=== PATIENT | female | born 1970 | race Caucasian/White ===

== ENCOUNTER → 2019-08-14 10:54 | Outpatient (CLI) | payer BC, SELFPAY ==
[2019-08-14 13:00] LABS: Coronavirus 19 IgG Antibody Negative (Negative); Coronavirus 19 IgM Antibody Negative (Negative)
== END ==
PROVIDERS: PCP Family Medicine; Visit Provider Family Medicine
DX: Z03.818 Encounter for observation for suspected exposure to other biological agents ruled out (principal)
CPT/HCPCS: 36415; 86328

== ENCOUNTER → 2020-02-05 16:43 | Outpatient (CLI) | payer BC, SELFPAY ==
--- NOTE | 2020-02-05 16:45 | MM_ITS ---
PROCEDURE: MM DIG SCREENING MAMM BI W/CAD Referring Doctor: Karley Cooper Patient Age:49Y CLINICAL INDICATION: SCREENING ROUTINE SCREENING. 49-YEAR-OLD. . NO HORMONES, NO NEW COMPLAINTS FAMILY HISTORY PATERNAL GRANDMOTHER WITH BREAST CANCER COMPARISON: MG MM DIG MAMMO SC from 11/07/2012 MG MM DIG MAMMO SC from 12/17/2013 TECHNIQUE: Standard CC and MLO images were obtained. R2 CAD reviewed. Bilateral digital breast tomosynthesis included. FINDINGS: moderate density breast tissue bilaterally mainly distributed through the superior breast and into the central breast. no dominant or suspicious mass.. No suspicious calcifications. There are few scattered punctate calcifications in both breast the not concern a few tiny small benign-appearing punctate calcifications bilaterally but no suspicious grouped microcalcifications. Right breast. No new areas of significant concern hand I small area of questionable the nodularity medial breast dissipates on tomosynthesis view and appears to be a vessel on end as seen before Left breast-a similar architecture with no new areas of concern IMPRESSION: NO SUSPICIOUS FINDINGS. NO NEW AREAS OF SIGNIFICANT CONCERN Moderately dense breast BILATERAL FOLLOW-UP 1 YEAR recommended, and should be encouraged BI-RAD Category: 2 Benign Finding(s) FOLLOW-UP: 1YR 1 Year Follow-up (A letter has been sent to the patient regarding results of the study.) Dictated by: Jerome Hernández MD 02/18/2020 07:15 Jerome Hernández MD in [place] 02/18/2020 07:15
== END ==
PROVIDERS: PCP Nurse Practitioner Family; Visit Provider Nurse Practitioner Family
DX: Z12.31 Encounter for screening mammogram for malignant neoplasm of breast (principal)
CPT/HCPCS: 77063; 77067

== ENCOUNTER → 2020-03-13 13:50 | Outpatient (CLI) | payer BC, SELFPAY ==
--- NOTE | 2020-03-13 13:56 | US_ITS ---
PROCEDURE: US THYROID CLINICAL INDICATION: AUTOIMMUNE THYROIDITIS COMPARISON: No exams were available for comparison FINDINGS: Right lobe: 1.8cm x 4.3cm x 2.3cm Left lobe: 1.1cm x 3.0cm x 1.1cm Isthmus: Unremarkable Additional findings: There is diffuse heterogeneous appearance the thyroid gland on both sides having a somewhat swish cheese appearance consistent with thyroiditis. IMPRESSION: Heterogeneous appearance of the thyroid gland as described above suggesting thyroiditis Dictated by: Navneet Leon MD 03/14/2020 09:07 Navneet Leon MD in [facility] 03/14/2020 09:07
== END ==
PROVIDERS: PCP Nurse Practitioner Family; Visit Provider Nurse Practitioner Family
DX: E06.3 Autoimmune thyroiditis (principal)
CPT/HCPCS: 76536

== ENCOUNTER 2023-06-13 14:00 | Outpatient (CLI) | payer OTHER, SELFPAY ==
[2023-06-13 14:53] LABS: Cholesterol 237 mg/dl (140-200); Triglycerides 83 mg/dl (30-150); VLDL Cholesterol 17 mg/dL (0-40)
[2023-06-13 15:02] LABS: Chol/HDL Ratio 2.3 (1-3.5); HDL Cholesterol 104 mg/dl (40-60)
[2023-06-13 15:05] LABS: Direct LDL Cholesterol 105.81 mg/dL (100-129)
[2023-06-13 15:11] LABS: T4 (Thyroxine) 7.7 ug/dl (5.53-11.0)
[2023-06-13 15:28] LABS: Ferritin 4.96 ng/ml (6.24-137)
[2023-06-13 16:19] LABS: 25-OH Vitamin D, Total 40.3 ng/mL (30-100)
[2023-06-13 17:08] LABS: Vitamin B12 953 pg/mL (239-931)
[2023-06-14 08:33] LABS: Triiodothyronine (T3) Free 4.1 pg/mL (2.0-4.4)
[2023-06-17 10:05] LABS: Triiodothyronine (T3) Reverse 17.8
== END 2023-06-13 23:59 | disposition home or self-care (01) ==
LOC: LAB.DROPOF 14:00
PROVIDERS: PCP Nurse Practitioner Family; Visit Provider Nurse Practitioner Family
DX: E06.3 Autoimmune thyroiditis (principal); E61.1 Iron deficiency; R79.89 Other specified abnormal findings of blood chemistry; E78.00 Pure hypercholesterolemia, unspecified
CPT/HCPCS: 80061; 82306; 82607; 82728; 84436; 84443; 84481; 84482

== ENCOUNTER 2024-01-13 16:49 | Outpatient (CLI) | payer OTHER, SELFPAY ==
[2024-01-13 16:36] LABS: Basophils # 0.1 K/mm3 (0-0.2); Basophils % 1.3 % (0.1-2.0); Eosinophils # 0.2 K/mm3 (0.0-0.4); Eosinophils % 3.9 % (0.1-12.0); Hematocrit 35.9 % (37.0-47.0); Hemoglobin 12.2 g/dL (12.2-16.2); Lymphocytes # 1.7 K/mm3 (0.7-4.5); Lymphocytes % 31.3 % (10-50); Mean Corpuscular HGB Conc 33.9 g/dL (31.8-35.4); Mean Corpuscular Hemoglobin 27.4 pg (27.0-31.2); Mean Corpuscular Volume 80.7 fl (81-99); Mean Platelet Volume 8.5 fl (7.4-10.4); Monocytes # 0.4 K/mm3 (0.1-1.0); Monocytes % 6.2 % (1.7-9.3); Neutrophils # 3.2 K/mm3 (1.8-7.8); Neutrophils % 57.4 % (37.0-80.0); Platelet Count 238 K/mm3 (142-424); Red Blood Count 4.45 M/mm3 (4.20-5.40); Red Cell Distribution Width 15.3 % (11.5-17.5); White Blood Count 5.6 K/mm3 (4.8-10.8)
[2024-01-13 17:12] LABS: T4 (Thyroxine) 6.3 ug/dl (5.53-11.0)
[2024-01-13 17:25] LABS: Thyroid Stimulating Hormone 2.69 uIU/mL (0.465-4.68)
[2024-01-13 17:29] LABS: Ferritin 4.98 ng/ml (11.1-264)
[2024-01-13 18:12] LABS: Free T4 (Free Thyroxine) 0.97 ng/dl (0.78-2.19)
[2024-01-14 08:18] LABS: Triiodothyronine (T3) Free 3.2 pg/mL (2.0-4.4)
== END 2024-01-13 23:59 | disposition home or self-care (01) ==
LOC: LAB.DROPOF 16:49
PROVIDERS: PCP Nurse Practitioner Family; Visit Provider Nurse Practitioner Family
DX: D50.9 Iron deficiency anemia, unspecified (principal); E06.3 Autoimmune thyroiditis
CPT/HCPCS: 82728; 84436; 84439; 84443; 84481; 85025

== ENCOUNTER 2024-02-07 16:22 | Outpatient (CLI) | payer OTHER, SELFPAY ==
--- NOTE | 2024-02-07 16:22 | MM_ITS ---
PROCEDURE INFORMATION: Exam: MG Bilateral Screening 3D Mammography Exam date and time: 02/07/2024 4:10 PM Age: 53 years old Clinical indication: Screening examination TECHNIQUE: Imaging protocol: Bilateral Screening tomosynthesis and 2D mammography including computer-aided detection (CAD) when performed. COMPARISON: 1. MG MM DIG SCREENING MAMM BI W/CAD 02/05/2020 4:49 PM 2. MG MM DIG MAMMO SC 12/17/2013 7:46 AM FINDINGS: MAMMOGRAPHY: Breast composition: The breasts are heterogeneously dense, which may obscure small masses. Mass: None. Architectural distortion: None. Calcifications: No suspicious calcifications. Asymmetric density: None. Skin thickening: None. Axillary adenopathy: None. IMPRESSION: No mammographic evidence of malignancy. Annual screening is recommended unless otherwise clinically indicated. ASSESSMENT: BI-RADS Category 1: Negative.
== END 2024-02-07 23:59 | disposition home or self-care (01) ==
LOC: RAD 16:22
PROVIDERS: PCP Nurse Practitioner Family; Visit Provider Nurse Practitioner Family
DX: Z12.31 Encounter for screening mammogram for malignant neoplasm of breast (principal)
CPT/HCPCS: 77063; 77067

== ENCOUNTER 2024-05-11 08:03 | Outpatient (CLI) | payer OTHER, SELFPAY ==
--- NOTE | 2024-05-11 08:10 | XR_ITS ---
FINAL REPORT CLINICAL HISTORY: Left anterior pain and swelling FINDINGS: Left knee Three views were obtained. There is no fracture or dislocation. There is minimal osteoarthritic disease. No joint effusion is identified. No soft tissue abnormality is identified. IMPRESSION: Minimal degenerative changes. Reviewed, Interpreted and Dictated by Justine Casas MD Transcribed by Dee Dee Mercado Authenticated and [facility]
== END 2024-05-11 23:59 | disposition home or self-care (01) ==
LOC: RAD 08:04
PROVIDERS: PCP Nurse Practitioner Family; Visit Provider Nurse Practitioner Family
DX: M25.562 Pain in left knee (principal)
CPT/HCPCS: 73562